=== PATIENT | male | born 1960 | race Caucasian/White ===

== ENCOUNTER 2016-03-22 17:39 | Emergency (ER) | payer BC ==
[2016-03-22 17:48] VITALS: BP 147/74; PULSE 107; RESP 18; O2SAT 93
[2016-03-22] MEDS ORDERED: ACETAMINOPHEN 325 MG TAB PO ONE (17:50)
--- NOTE | 2016-03-22 17:57 | UCPHY ---
H & P Time Seen by Provider: 03/22/16 17:40 Patient Type: New HPI/ROS: HPI Cough and congestion, fever. 55-year-old male by private vehicle. This patient reports that he developed a fever with chills on Wednesday with chest congestion. He reports he developed a dry cough today. He has also had nasal congestion with clear rhinorrhea. ROS: Constitutional: As above. No weakness. Eyes: No discharge. No changes in vision. ENT: No sore throat. As above. Respiratory: As above. No shortness of breath. Cardiac: No chest pain, no palpitations. Gastrointestinal: No abdominal pain, no vomiting, no diarrhea. Genitourinary: No hematuria. No dysuria or increased frequency with urination. Musculoskeletal: No back pain. No neck pain. No myalgias or arthralgias. Skin: No rashes. Neurological: No headache. No focal weakness or altered sensation. Past medical history: Denies any significant past medical history does not take any prescription medications. Social history: Nonsmoker. Here by himself. Physical Exam: General Appearance: Alert, no distress. This patient is responding to questions appropriately and in full sentences. This patient appears well- hydrated and well-nourished. Eyes: Pupils equal and round no pallor or injection. No lid edema, erythema or injection. ENT, Mouth: Mucous membranes are moist. The pharyngeal tissues are unremarkable. No edema or swelling. No asymmetry suggestive of abscess. No erythema or exudates. Respiratory: There are no retractions, lungs are clear to auscultation with good air movement bilaterally. No tachypnea. Intermittent dry cough. Cardiovascular: Regular rate and rhythm. Borderline tachycardia. No murmur. Neurological: Motor sensory function is grossly intact. Cranial nerves are normal. Gait is normal. Skin: Warm and dry, no rashes. Musculoskeletal: Neck is supple and nontender. Extremities are symmetrical. All joints range without pain or impingement. Psychiatric: No agitation. No depression. Database: Rapid flu-positive for influenza A. EKG: Imaging: Chest x-ray PA and lateral; diffuse airway disease/bronchitis. By basilar atelectasis Greater on the left. No obvious infiltrate. No other acute cardiopulmonary disease process noted. Interpreted by me. Procedures: Emergency department course: Patient given 1 g of oral Tylenol after my evaluation for fever. Vital signs have been reviewed. He is mildly tachycardic. He will be sent for a chest x- ray. Flu swab will be obtained. 6:15 p.m., patient re-evaluated. Resting comfortably at this time. Results of chest x-ray as well as diagnosis of influenza discussed. Patient given 75 mg of Tamiflu in the urgent care. He feels comfortable going home and I feel he is safe for discharge. I will prescribe him Tamiflu for continued treatment. I also discussed ibuprofen and Tylenol dosing in the importance of keeping well hydrated. Follow-up and return to emergency department precautions have been discussed with him. All of his questions were answered. He was discharged in good condition. 10:25 p.m., I called the patient. I discussed concerns about possible pneumonia on his chest x-ray. Patient states that he is feeling better now. He was instructed to return to the emergency department or urgent care if he does develop a worsening cough or fever for re-evaluation and prescription for antibiotics. He said he would do this. Differential Diagnosis: The differential diagnosis on this patient includes but is not limited to influenza, viral upper respiratory infection, pneumonia. This represents a partial list of diagnoses considered. These considerations are based on history , physical exam, past history, reassessment and diagnostic testing. Smoking Status: Never smoked Constitutional: Initial Vital Signs Temperature (C) 38.9 C H 03/22/16 17:45 Heart Rate 107 H 03/22/16 17:45 Respiratory Rate 18 03/22/16 17:45 Blood Pressure 147/74 H 03/22/16 17:45 O2 Sat (%) 93 03/22/16 17:45 O2 Delivery Mode Room Air Allergies/Adverse Reactions: No Known Allergies Allergy (Unverified 03/22/16 17:44) Home Medications: Medication Instructions Recorded Oseltamivir Phosphate [Tamiflu 75 75 mg PO BID #10 cap 03/22/16 mg (RX)] Medical Decision Making - Data Points Laboratory Results: 03/22/16 17:52 Influenza Typ A,B (DFA) POSITIVE FOR FLU A H (NEGATIVE) Medications Given: Discontinued Medications Acetaminophen (Tylenol) 1,000 mg PO EDNOW ONE Stop: 03/22/16 17:51 Last Admin: 03/22/16 17:58 Dose: 975 mg Oseltamivir Phosphate (Tamiflu) 75 mg PO EDNOW ONE Stop: 03/22/16 18:11 Last Admin: 03/22/16 18:31 Dose: 75 mg Oseltamivir Phosphate (Tamiflu) 75 mg PO EDNOW ONE Stop: 03/22/16 18:22 Last Admin: 03/22/16 18:31 Dose: 75 mg Departure - Departure Disposition: Home, Routine, Self-Care Clinical Impression: Influenza A, Fever Condition: Good Instructions: Influenza (ED) Additional Instructions: Read and follow provided instructions. Follow-up with your primary care physician in 1-2 days for re-evaluation. Take medication as prescribed. Ibuprofen dosin mg every 6 hours with meals for the next 3 days only. Tylenol can also be taken for fever at 650 mg to 1 g every 6 hours over the next 3 days. Keep well hydrated and get lots of rest. Return to the emergency department for worsening cough, difficulty breathing, weakness, high fever or other serious concerns. Referrals: OUT OF STATE,. [Primary Care Provider] - As per Instructions Prescriptions: Oseltamivir Phosphate [Tamiflu 75 mg (RX)] 75 mg PO BID #10 cap - PQRS PQRS Measurement: 134: Depression screening and followup, PRIME MD-PHQ2 (12 years and older) Over the last 2 weeks, how often have you been bothered by any of the following problems? 1. Feeling down, depressed, or hopeless? 2. Little interest or pleasure in doing things? Answered no to both questions. 130: Documentation of medications. Reviewed all patient medications, doses, route and frequency. 226: Do you smoke? No. 47: 65 and older: Advanced care planning. Patient designates surrogate decision maker as family. 51: 18 years old and older with diagnosis of COPD, spirometry performance. NA 52: 18 years old and older with COPD and symptoms of COPD or FEV1<60% predicted prescribed a B Agonist. NA
[2016-03-22] MEDS ORDERED: OSELTAMIVIR PHOSPHATE 75 MG CAP PO ONE ×2 (18:10→18:21)
[2016-03-22 18:33] VITALS: TEMP 100.2
--- NOTE | 2016-03-22 18:45 | DX ---
PA and Lateral Chest - March 22, 2016 Clinical Indications: Cough, fever and congestion in a 55-year-old male. Comparison: No prior studies are available for comparison. Findings: Peribronchial thickening is noted. Bibasilar opacities are seen, somewhat more pronounced o n the left. This could reflect atelectasis or, less likely, left lower lobe pneumonia. The upper lung s are clear. Heart size and pulmonary vascularity are normal. There is mild elevation of the right he midiaphragm. There may be an element of hyperexpansion, suggesting airways disease. Degenerative huynh ges are seen in the spine. Impression: 1. Suspect airways disease. 2. Basilar opacities, left greater than right, atelectasis versus pneumonia with clinical correlation suggested.
== END 2016-03-22 18:34 | disposition home or self-care (01) ==
LOC: CED 17:39
DX: J09.X2 Influenza due to identified novel influenza A virus with other respiratory manifestations (principal)
CPT/HCPCS: 71020-PO; 87400-PO; 99203-PO; G0463-PO